=== PATIENT | male | born 1990 | race Caucasian/White ===

== ENCOUNTER 2018-09-06 19:36 | Emergency (ER) | payer OTHER ==
[~2018-09-06] VITALS: Ht 170.2 cm; Wt 63.5 kg
[~2018-09-06 19:36] MED LIST: Flomax0.4 MG PO; KETO10 PO; Percocet 5-3251 EACH PO; TAMS.4ER PO; Zofran Odt8 MG SL
== END 2018-09-06 20:49 | disposition home or self-care (01) ==
LOC: ER 19:36
DX: S61.512A Laceration without foreign body of left wrist, initial encounter (principal); W26.8XXA Contact with other sharp object(s), not elsewhere classified, initial encounter
CPT/HCPCS: 12002; 90714; 99282-25